=== PATIENT | female | born 2000 | race Caucasian/White ===

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

== ENCOUNTER 2018-06-14 06:20 | Emergency (ER) | payer BC, OTHER ==
--- NOTE | 2018-06-14 06:43 | EDPHY ---
H & P Time Seen by Provider: 06/14/18 06:43 HPI/ROS: CHIEF COMPLAINT: Abdominal pain and diarrhea HISTORY OF PRESENT ILLNESS: Patient was diagnosed 4 years ago with Crohn's disease at that time she mostly had intraoral ulcers. She was doing well yesterday, started with a gluten free diet 2 and half weeks ago and then around midnight started with abdominal cramping and had 8 or 10 episodes of diarrhea. Symptoms severe but not associated with mucus blood or fever. She does have nausea but no vomiting. No recent injury or trauma no foreign travel. Symptoms severe, not better or worse with anything. REVIEW OF SYSTEMS: Eye: no change in vision ENT: no sore throat Cardiac: no chest pain or syncope Pulmonary: no cough or SOB Abdomen: HPI Musculoskeletal: no back pain Skin: Scheduled for surgery this coming week on persistent enlarged lymph nodes in her left groin. Neuro: no headache Constitutional: no fever : no urinary symptoms A comprehensive 10 point review of systems is otherwise negative aside from elements mentioned in the history of present illness. PAST MEDICAL HISTORY: Includes Crohn's disease Social history: Student at University here in town General Appearance: Alert and conversant, cooperative. Eyes: No scleral icterus. ENT, Mouth: Dry mucous membranes. Respiratory: Normal respiratory effort, breath sounds equal, lungs are clear to auscultation. Cardiovascular: Regular rate and rhythm. Gastrointestinal: Abdomen is soft and non tender. No rebound and no guarding, no McBurney's point tenderness, no hernia. Neurological: Alert, face symmetric, normal motor and sensory in extremities. Skin: Warm and dry, no rashes. Groin not examined. Musculoskeletal: No peripheral edema. Psychiatric: Not agitated. Emergency Department course/MDM: IV normal saline hydration 2 L, CBC chemistry and HCG. Zofran 4 mg IV. Imodium 4 mg orally. Low suspicion for GI bleed, acute surgical abdominal process, more likely to be food related or acute viral. Crohn's flare considered; but felt less likely, her previous symptoms were intraoral ulcers, she does not have abdominal tenderness or bloody stool, WBC 13. Re-examined at 7:45 a.m., feels better, results discussed with the patient. Plan for IV hydration and discharge if improved. Does not have tenderness on exam, primarily diarrhea 1st, I think that acute appendicitis unlikely. Warned to return if she gets worse. Smoking Status: Never smoked Constitutional: Initial Vital Signs Temperature (C) 36.8 C 06/14/18 06:23 Heart Rate 104 H 06/14/18 06:23 Respiratory Rate 18 06/14/18 06:23 Blood Pressure 138/82 H 06/14/18 06:23 O2 Sat (%) 94 06/14/18 06:23 O2 Delivery Mode Room Air Allergies/Adverse Reactions: No Known Allergies Allergy (Unverified 06/14/18 06:22) Home Medications: Medication Instructions Recorded Atorvastatin Calcium 06/14/18 Doxycycline Hyclate 06/14/18 Lucy 06/14/18 Ondansetron Odt [Zofran Odt] 4 mg PO Q4PRN #6 tab 06/14/18 Stelara 06/14/18 Medical Decision Making - Data Points Laboratory Results: Laboratory Results 06/14/18 06:40 06/14/18 06:40 06/14/18 06/14/18 06/14/18 06:40 06:40 06:40 WBC 13.41 10^3/uL H 10^3/uL (3.80-9.50) RBC 5.19 10^6/uL 10^6/uL (4.18-5.33) Hgb 15.9 g/dL g/dL (12.6-16.3) Hct 46.1 % % (38.0-47.0) MCV 88.8 fL fL (81.5-99.8) MCH 30.6 pg pg (27.9-34.1) MCHC 34.5 g/dL g/dL (32.4-36.7) RDW 12.1 % % (11.5-15.2) Plt Count 352 10^3/uL 10^3/uL (150-400) MPV 8.6 fL L fL (8.7-11.7) Neut % (Auto) 77.6 % H % (39.3-74.2) Lymph % (Auto) 11.6 % L % (15.0-45.0) [place] % (Auto) 9.5 % % (4.5-13.0) Eos % (Auto) 0.8 % % (0.6-7.6) Baso % (Auto) 0.4 % % (0.3-1.7) Nucleat RBC Rel Count 0.0 % % (0.0-0.2) Absolute Neuts (auto) 10.38 10^3/uL H 10^3/uL (1.70-6.50) Absolute Lymphs (auto) 1.56 10^3/uL 10^3/uL (1.00-3.00) Absolute Monos (auto) 1.28 10^3/uL H 10^3/uL (0.30-0.80) Absolute Eos (auto) 0.11 10^3/uL 10^3/uL (0.03-0.40) Absolute Basos (auto) 0.06 10^3/uL 10^3/uL (0.02-0.10) Absolute Nucleated RBC 0.00 10^3/uL 10^3/uL (0-0.01) Immature Gran % 0.1 % % (0.0-1.1) Immature Gran # 0.02 10^3/uL 10^3/uL (0.00-0.10) Sodium 139 mEq/L mEq/L (135-145) Potassium 4.0 mEq/L mEq/L (3.5-5.2) Chloride 105 mEq/L mEq/L (97-110) Carbon Dioxide 21 mEq/l L mEq/l (22-31) Anion Gap 13 mEq/L mEq/L (6-14) BUN 16 mg/dL mg/dL (7-23) Creatinine 0.7 mg/dL mg/dL (0.6-1.0) Estimated GFR > 60 Glucose 105 mg/dL H mg/dL (70-100) Calcium 10.0 mg/dL mg/dL (8.5-10.4) Beta HCG, Qual NEGATIVE Medications Given: Discontinued Medications Fentanyl (Sublimaze) 50 mcg IVP EDNOW ONE Stop: 06/14/18 07:30 Last Admin: 06/14/18 07:34 Dose: 50 mcg Sodium Chloride (Ns) 1,000 mls @ 0 mls/hr IV EDNOW ONE; Wide Open PRN Reason: Protocol Stop: 06/14/18 06:45 Last Admin: 06/14/18 06:53 Dose: 1,000 mls Sodium Chloride (Ns) 1,000 mls @ 0 mls/hr IV EDNOW ONE; Wide Open PRN Reason: Protocol Stop: 06/14/18 07:22 Last Admin: 06/14/18 07:27 Dose: 1,000 mls Loperamide HCl ( Imodium) 4 mg PO EDNOW ONE Stop: 06/14/18 07:09 Last Admin: 06/14/18 07:26 Dose: 4 mg Ondansetron HCl (Zofran) 4 mg IVP EDNOW ONE Stop: 06/14/18 06:54 Last Admin: 06/14/18 06:55 Dose: 4 mg Oxycodone/Acetaminophen (Percocet 5/325mg Prepack#4) 1 btl TAKEHOME EDNOW ONE Stop: 06/14/18 09:14 Last Admin: 06/14/18 09:18 Dose: 1 btl Departure - Departure Disposition: Home, Routine, Self-Care Clinical Impression: Dehydration Diarrhea Qualifiers: Diarrhea type: unspecified type Qualified Code(s): R19.7 - Diarrhea, unspecified Condition: Good Instructions: Oxycodone/Acetaminophen (By mouth), Acute Diarrhea (ED) Referrals: NONE *PRIMARY CARE P,. [Primary Care Provider] - As per Instructions (Dr. Woodward [facility]) Stand Alone Forms: School Excuse Prescriptions: Ondansetron Odt [Zofran Odt] 4 mg PO Q4PRN #6 tab
[2018-06-14] MEDS ORDERED: NS 1,000 ML IV ONE ×2 (06:44→07:21)
[2018-06-14 06:53] LABS: PLATELET COUNT 352 10^3/uL (150-400)
[2018-06-14] MEDS ORDERED: ONDANSETRON 4 MG/2 ML VIAL IVP ONE (06:53)
[2018-06-14] MEDS ORDERED: LOPERAMIDE HCL 2 MG CAP PO ONE (07:08)
[2018-06-14] MEDS ORDERED: fentaNYL 100 MCG/2 ML INJ IVP ONE (07:29)
[2018-06-14 09:12] VITALS: BP 97/62
[2018-06-14] MEDS ORDERED: OXYCODONE/APAP 5/325MG PREPACK#4 BTL TAKEHOME ONE (09:13)
== END 2018-06-14 09:20 | disposition home or self-care (01) ==
DX: R19.7 Diarrhea, unspecified (principal); E86.0 Dehydration; K50.00 Crohn's disease of small intestine without complications
CPT/HCPCS: 96374; J2405; J3010